=== PATIENT | male | born 1970 | race Caucasian/White ===

== ENCOUNTER 2022-09-20 09:40 | Emergency (ER) | payer SELFPAY ==
[~2022-09-20] VITALS: Ht 177.8 cm; Wt 110.7 kg
[2022-09-20 09:43] VITALS: BP 143/78; PULSE 54; RESP 20; TEMP 97.3; O2SAT 94
--- NOTE | 2022-09-20 09:48 | NUR ---
PT COMES IN TO ER WITH C/O ANTERIOR CHEST WALL PAIN, NON RADIATING SINCE DEC 2021, BUT WORSE IN THE LAST 3 DAYS. REPORTS A LOT OF STRESS AT HOME, "I FEEL ANXIOUS. DENIES FEVERS/SOB/TRAUMA. SKIN W/D/I, IN NAD. RESP EVEN AND UNLABORED, ON RA @99%.
--- NOTE | 2022-09-20 10:04 | NUR ---
DR MONTALVO IN ROOM FORM EXAM
[2022-09-20] MEDS ORDERED: ATA25 PO (10:14)
[2022-09-20] MEDS ORDERED: IBUP-2213 PO (10:14)
[2022-09-20 10:40] VITALS: BP 129/81; PULSE 55; RESP 20; TEMP 97.3; O2SAT 94
--- NOTE | 2022-09-20 10:40 | NUR ---
Patient discharged with v/s stable. Written and verbal after care instructions given and explained. Patient verbalized understanding. Ambulatory with steady gait. All questions addressed prior to discharge. Advised to follow up with PMD.
== END 2022-09-20 10:15 | disposition home or self-care (01) ==
LOC: MED 09:40
DX: R07.89 Other chest pain (principal); Z79.899 Other long term (current) drug therapy; Z90.49 Acquired absence of other specified parts of digestive tract; Z98.890 Other specified postprocedural states
CPT/HCPCS: 93005; 99283